=== PATIENT | male | born 1965 | race Caucasian/White ===

== ENCOUNTER 2017-07-26 09:35 | Emergency (ER) | payer OTHER ==
[~2017-07-26 09:35] MED LIST: CIPROFLOXACIN500 M1 PO; FLEXERIL PO; IBUPROFEN 600600 M1 PO; IBUPROFEN 800800 M1 PO; LISINOPRIL10 MG PO; NOHOMEMEDICATIONS; NORCO 5-325 TA1 EACH PO; PERCOCET 5-3251 EACH PO; PREDNISONE 5 MG5 MG PO; SKELAXIN 800 M800 M1 PO; VALIUM5 MG PO
[2017-07-26 09:37] VITALS: BP 154/89
== END 2017-07-26 09:55 | disposition left against medical advice (07) ==
LOC: ER 09:35
DX: R42 Dizziness and giddiness (principal); Z53.21 Procedure and treatment not carried out due to patient leaving prior to being seen by health care provider; I10 Essential (primary) hypertension; F17.210 Nicotine dependence, cigarettes, uncomplicated

== ENCOUNTER 2017-10-06 10:58 | Emergency (ER) | payer OTHER ==
[~2017-10-06] VITALS: Ht 180.3 cm; Wt 88.5 kg
[2017-10-06] MEDS ORDERED: OXYCONTIN15 MG PO (11:09)
[2017-10-06] MEDS ORDERED: LYRICA 75 MG CA75 MG PO (11:09)
[2017-10-06] MEDS ORDERED: PREDNISONE 20 M20 MG PO (11:44)
[2017-10-06] MEDS ORDERED: PROMETHAZINE/C118 ML PO (11:44)
[2017-10-06] MEDS ORDERED: PROVENTIL HFA6.7 G1 INH (11:44)
[2017-10-06] MEDS ORDERED: ZPAK PO (11:50)
[2017-10-06 12:02] VITALS: BP 132/71
== END 2017-10-06 12:03 | disposition home or self-care (01) ==
LOC: ER 10:58
DX: J02.9 Acute pharyngitis, unspecified (principal); I10 Essential (primary) hypertension; K75.89 Other specified inflammatory liver diseases; F17.210 Nicotine dependence, cigarettes, uncomplicated